=== PATIENT | male | born 1995 | race Caucasian/White ===

== ENCOUNTER → 2020-07-20 15:33 | Outpatient (CLI) | payer BC, SELFPAY | PROVIDERS: PCP Family Medicine; Referring Provider Nurse Practitioner; Visit Provider Family Medicine | DX: Z03.818 Encounter for observation for suspected exposure to other biological agents ruled out (principal) | CPT/HCPCS: U0003 ==

== ENCOUNTER → 2020-10-17 11:30 | Outpatient (CLI) | payer BC, SELFPAY | PROVIDERS: PCP Family Medicine; Visit Provider Family Medicine | DX: Z20.822 Contact with and (suspected) exposure to COVID-19 (principal) | CPT/HCPCS: U0003 ==

== ENCOUNTER 2021-08-03 22:23 | Emergency (ER) | payer BC, SELFPAY ==
[2021-08-03 22:24] VITALS: BP 133/86; PULSE 110; RESP 18; TEMP 36.8; O2SAT 97; BMI 25.8
--- NOTE | 2021-08-03 22:35 | ECG_ITS ---
APPROVED REPORT Exam: Resting ECG HR:92 bpm ECG Measurements Heart Rate 92 AXES OR 145 P 64 QRSd 105 QRS 83 QT 331 T 60 QTc 381 Conclusion SINUS RHYTHM NORMAL ECG UNCONFIRMED REPORT Electronically signed by : Sae Aragon MD 08/04/2021 13:45:14
--- NOTE | 2021-08-03 22:56 | XR_ITS ---
PROCEDURE INFORMATION: Exam: XR Chest Exam date and time: 08/03/2021 10:56 PM Age: 26 years old Clinical indication: Sternal or substernal pain; Additional info: Chest pain protocol TECHNIQUE: Imaging protocol: XR of the chest. Views: 2 views. COMPARISON: No relevant prior studies available. FINDINGS: Lungs: No acute findings or consolidation. Pleural spaces: No pleural effusion. No pneumothorax. Heart/Mediastinum: No acute findings or cardiomegaly. Bones/joints: No acute findings. IMPRESSION: No acute cardiopulmonary findings.
[2021-08-03 23:01] LABS: Basophils # 0.1 K/mm3 (0-0.2); Basophils % 0.9 % (0.1-2.0); Eosinophils % 0.3 % (0.1-12.0); Hematocrit 46.1 % (42.0-52.0); Hemoglobin 14.8 g/dL (14.1-18.0); Lymphocytes # 1.4 K/mm3 (0.7-4.5); Lymphocytes % 16.8 % (10-50); Mean Corpuscular HGB Conc 32.1 g/dL (31.8-35.4); Mean Corpuscular Hemoglobin 32.2 pg (27.0-31.2); Mean Corpuscular Volume 100.3 fl (80-94); Mean Platelet Volume 8.4 fl (7.4-10.4); Monocytes # 0.5 K/mm3 (0.1-1.0); Monocytes % 5.6 % (1.7-9.3); Neutrophils # 6.6 K/mm3 (1.8-7.8); Neutrophils % 76.5 % (37.0-80.0); Platelet Count 241 K/mm3 (142-424); Red Blood Count 4.59 M/mm3 (4.60-6.20); Red Cell Distribution Width 12.8 % (11.5-17.5); White Blood Count 8.6 K/mm3 (4.8-10.8)
--- NOTE | 2021-08-03 23:01 | HMH.EDWEAK ---
ED Disposition Clinical Impression: Chest pain Qualifiers: Chest pain type: unspecified Qualified Code(s): R07.9 - Chest pain, unspecified Disposition: Home, Self-Care Condition on Discharge: Good Instructions: DI for Atypical Chest Pain Additional Instructions: fluids and see pcp for follow up Referrals: Sae Milian MD [Primary Care Provider] - - Critical Care Critical Care Time: No Attestation: On 08/03/21, the high probability of a clinically significant, sudden or life threatening deterioration of the following system(s) required my full and direct attention, intervention and personal management. The time I documented below is in addition to time spent performing reported procedures but includes the following listed in this critical care notation. Medical Decision Making - Medical Records Medical records reviewed: Yes: I reviewed the patient's medical records. - Roby Inquiry Pt receiving controlled substance: No Vital Signs: 08/03/21 22:24 Temperature 98.3 F Temperature Source Oral Pulse Rate [Apical] 110 H Respiratory Rate 18 Blood Pressure [Right Arm] 133/86 Blood Pressure Mean [Right Arm] 101 Blood Pressure Source [Right Arm] Automatic Cuff Blood Pressure Position [Right Arm] Sitting 02 Sat by Pulse Oximetry 97 Oxygen Delivery Method Room Air - Lab Data Lab results reviewed: Yes: I reviewed the patient's lab results. Lab Results 08/03/21 22:34: Urine Opiates Screen Negative, Urine Methadone Screen Negative, Ur Barbituates Screen Negative, Ur Phencyclidine Scrn Negative, Ur Amphetamines Screen Negative, U Benzodiazepines Scrn Negative, Urine Cocaine Screen Negative, U Marijuana (THC) Screen Negative 08/03/21 22:55: WBC 8.6, RBC 4.59 L, Hgb 14.8, Hct 46.1, MCV 100.3 H, MCH 32.2 H, MCHC 32.1, RDW 12.8, Plt Count 241, MPV 8.4, Neut % (Auto) 76.5, Lymph % (Auto) 16.8, Lyon % (Auto) 5.6, Eos % (Auto) 0.3, Baso % (Auto) 0.9, Neut # (Auto) 6.6, Lymph # (Auto) 1.4, Lyon # (Auto) 0.5, Eos # (Auto) 0.0, Baso # (Auto) 0.1 08/03/21 22:55: Sodium 137, Chloride 102, Carbon Dioxide 27, BUN 10, Creatinine 0.70, Estimated Creat Clear 181, Estimated GFR 134, Est GFR ( Amer) 162, Glucose 133 H, Calcium 8.8, Total Bilirubin 0.5, AST 40, ALT 34, Alkaline Phosphatase 44, Salicylates < 1.0 L, Acetaminophen < 10 L 08/03/21 22:55: Plasma/Serum Alcohol < 10 Result diagrams: 08/03/21 22:55 08/03/21 22:55 Orders (Tests/Meds): ED MEDICATIONS Generic Name Dose Route Start Last Admin Trade Name Freq PRN Reason Stop Dose Admin Sodium Chloride 1,000 mls @ 999 mls/hr 08/03/21 23:00 08/03/21 22:58 Sod Chlor 0.9% 1000ml Bag IV 08/04/21 00:00 999 mls/hr .Q1H1M LINNEA Administration ORDERS Category Date Time Status Chest XR 2 view (NOT portable) [XR chest 2V] Stat Exams 08/03/21 22:56 Taken Acetaminophen Stat Lab 08/03/21 22:55 Results Comprehensive Metabolic Panel Stat Lab 08/03/21 22:55 Results Salicylate Stat Lab 08/03/21 22:55 Results Troponin I Q3H Lab 08/04/21 02:00 Ordered Troponin I Q3H Lab 08/04/21 05:00 Ordered Troponin I Stat Lab 08/03/21 22:55 Results ECG Request by /Soto Stat Y 08/03/21 22:51 Ordered - Radiology Data #1 Image(s): Chest Image Reviewed: Yes I have reviewed radiologist's interpretation Preliminary Findings: Normal/NAD - ECG Data Tracing #1 Normal Sinus Rhythm: Yes Ischemic changes: non-specific ST-T wave changes - ERNESTO Score for Non-Stemi Age of Patient: <30 years old Heart Rate: 110-149 bpm Systolic Blood Pressure: 120-139 mmhg Serum Creatinine: 0.40-0.79 mg/dl CHF Killip Class: I-No CHF Other Risk Factors: None Non-Stemi Risk Score: 62 Weakness HPI - General Chief complaint: Weakness Stated complaint: panicky, weak shaky Time Seen by Provider: 08/03/21 23:01 Mode of Arrival: Ambulatory Source of Information: Patient, Medical Record Limitations: No Limitations Description of Symptoms (Recalled from ER Triage Doc. by
[2021-08-03 23:13] LABS: Chloride 102 mmol/L (98-107); Sodium 137 mmol/L (136-145)
[2021-08-03 23:16] LABS: Alanine Aminotransferase 34 U/L (12-78); Alkaline Phosphatase 44 U/L (38-126); Aspartate Amino Transferase 40 U/L (17-59); Bilirubin,Total 0.5 mg/dl (0.2-1.3); Blood Urea Nitrogen 10 mg/dl (9-20); Calcium 8.8 mg/dl (8.4-10.2); Carbon Dioxide 27 mmol/L (22.0-30.0); Creatinine Clearance Estimated 181 mL/min (50-200); Estimated Glomerular Filt Rate 134 ml/min (>60); GFR (African American) 162 ML/MIN (>60); Glucose 133 mg/dl (74-100)
[2021-08-03 23:20] LABS: Ethyl Alcohol < 10 mg/dl (0-10)
[2021-08-03 23:20] LABS: Barbiturates Screen,Urine Negative ng/ml (<200); Benzodiazepines Screen,Urine Negative ng/ml (<200)
[2021-08-03 23:21] LABS: Acetaminophen < 10 ug/ml (10-30); Salicylate < 1.0 mg/dL (2.0-20.0)
[2021-08-03 23:21] LABS: Amphetamine/Metha Screen,Urine Negative ng/ml (<1000)
[2021-08-03 23:22] LABS: Methadone Screen,Urine Negative ng/ml (<300)
[2021-08-03 23:23] LABS: Cannabinoid Screen,Urine Negative ng/ml (<50); Cocaine Screen,Urine Negative ng/ml (<300)
[2021-08-03 23:24] LABS: Opiate Screen,Urine Negative ng/ml (<300)
[2021-08-03 23:25] LABS: Phencyclidine Screen,Urine Negative ng/ml (<25)
[2021-08-03 23:49] LABS: Albumin Level 4.8 g/dl (3.5-5.0); Albumin/Globulin Ratio 1.8 (1.1-1.8); Globulin 2.7 g/dL (1.3-3.2); Total Protein,Serum 7.5 g/dl (6.3-8.2)
[2021-08-04 00:02] LABS: Troponin I < 0.01 ng/ml (0.00-0.034)
[2021-08-04 00:08] VITALS: BP 130/80; PULSE 78; RESP 20; TEMP 36.8; O2SAT 99
== END 2021-08-04 00:09 | disposition home or self-care (01) ==
PROVIDERS: Emergency Provider Emergency Medicine; PCP Family Medicine
DX: R07.9 Chest pain, unspecified (principal); R53.1 Weakness; F10.10 Alcohol abuse, uncomplicated
CPT/HCPCS: 71046; 80053; 80305; 80329; 84484; 85025; 93005; 96365; 99282

== ENCOUNTER 2021-10-12 15:00 | Outpatient (RCR) | payer BC, SELFPAY ==
--- NOTE | 2021-09-24 16:14 | HMH.PTOPEV ---
PT Outpatient Evaluation Rehab PT Outpatient Evaluation Start: 09/24/21 15:25 Freq: Status: Active Protocol: Document 09/24/21 15:25 REGIS (Rec: 09/24/21 16:14 REGIS [id number]) Electronically Signed By Jerod uHi, PT 09/24/21 15:25 Outpatient Therapy Subjective History Subjective History Pt reports insidious onset left shoulder beginning ~3-4 weeks, has since 'mostly' resolved, and progressed to left sided neck pain and stiffness. Pt reports increased left sided neck mm stiffness upon waking, following full work day @[employer], reports some referred pain and soreness into left shoulder blade area as well. Chief Complaint Pain,Stiff Symptom Type Ache,Dull Symptoms Relieved By Rest/Positioning,Heat, Prescription Meds Symptoms Aggravated By Physical Activity,Lifting Prior Functional Limitations Reaching,Lifting,Housework, Desk Work/Reading,Driving Current Functional Limitations Reaching,Lifting,Housework, Desk Work/Reading,Driving, Sleeping Symptom Description Constant but Variable Level of pain today (0-10) 3 Pain scale - at its best (0-10) 1 Pain scale - at its worst (0-10) 5 Cervical Eval Palpation Cervical Muscles L Cervical Paraspinal,L Suboccipital,L CT Junction,L Upper Trapezius,R Thoracic Paraspinals,L Thoracic Paraspinals Cervical/Thoracic Palpation Findings Tenderness,Trigger Point, Muscle Guarding Posture Head/C-Spine Posture Sitting Position Flexed Head/C-Spine Posture Standing Position Flexed Flexibility Deficits Upper Trapezius Muscle Length (L) Moderate Tightness Levaetor Scapulae Muscle Length (L) Mild Tightness Scalene Group Muscle Length (L) Moderate Tightness Pectoralis Major Muscle Length (R) Mild Tightness,(L) Mild Tightness Pectoralis Minor Muscle Length (R) Mild Tightness,(L) Mild Tightness Passive Joint Mobility Cervical PIVM WNL: R OA L OA R AA L AA R C2/3 L C2/3 R C3/4
== END 2021-10-12 15:05 | disposition home or self-care (01) ==
LOC: PT 15:00
PROVIDERS: PCP Family Medicine; Visit Provider Family Medicine
DX: M54.2 Cervicalgia (principal)
CPT/HCPCS: 97010; 97014; 97035; 97110; 97140; 97163; G0283

== ENCOUNTER 2023-08-06 18:48 | Outpatient (CLI) | payer BC, SELFPAY | END 2023-08-06 23:59 | LOC: LAB.DROPOF 18:48 | PROVIDERS: PCP Nurse Practitioner Family; Visit Provider Nurse Practitioner Family | DX: J02.9 Acute pharyngitis, unspecified (principal) | CPT/HCPCS: 87070 ==